=== PATIENT | female | born 1985 | race Caucasian/White ===

== ENCOUNTER 2017-01-22 11:02 | Emergency (ER) | payer SELFPAY ==
[2017-01-22 13:21] VITALS: BP 112/67
== END 2017-01-22 13:35 | disposition home or self-care (01) ==
LOC: ED 11:02
DX: S61.213A Laceration without foreign body of left middle finger without damage to nail, initial encounter (principal); W26.0XXA Contact with knife, initial encounter; Y93.89 Activity, other specified; Y92.009 Unspecified place in unspecified non-institutional (private) residence as the place of occurrence of the external cause
CPT/HCPCS: 90715; A4550

== ENCOUNTER 2017-02-02 19:39 | Emergency (ER) | payer SELFPAY ==
[2017-02-02 19:44] VITALS: BP 135/77
== END 2017-02-02 20:18 | disposition home or self-care (01) ==
LOC: ED 19:39

== ENCOUNTER 2017-08-06 19:30 | Emergency (ER) | payer OTHER ==
[~2017-08-06] VITALS: Ht 165.1 cm; Wt 100.0 kg
[2017-08-06] MEDS ORDERED: PREMIERPRO RX5 MG/GM OP (21:20)
[2017-08-06 21:36] VITALS: BP 124/80
== END 2017-08-06 21:34 | disposition home or self-care (01) ==
LOC: ED 19:30
DX: S05.01XA Injury of conjunctiva and corneal abrasion without foreign body, right eye, initial encounter (principal); X58.XXXA Exposure to other specified factors, initial encounter; Y92.219 Unspecified school as the place of occurrence of the external cause

== ENCOUNTER 2018-08-19 01:31 | Emergency (ER) | payer BC ==
[~2018-08-19] VITALS: Ht 165.1 cm; Wt 104.5 kg
[~2018-08-19 01:31] MED LIST: PREMIERPRO RX5 MG/GM OP
[2018-08-19 02:40] VITALS: BP 137/75
== END 2018-08-19 02:40 | disposition home or self-care (01) ==
LOC: ED 01:31
DX: R51 Headache (principal)
CPT/HCPCS: J1885